=== PATIENT | male | born 1950 | race Caucasian/White ===

== ENCOUNTER 2017-05-10 11:04 | Inpatient (IN) | payer OTHER, MEDICARE ==
[2017-05-10 11:04] VITALS: BMI 27.2
--- NOTE | 2017-05-10 11:41 | C.PDOC ---
History Of Present Illness 59 y/o male, who reports he is on Xarelto for unknown reasons, presents to emergency department with complaints of palpitations, dizziness, SOB, and mild epigastric pain. Patient states he saw his doctor yesterday and was sent home; returns now with worsening symptoms. Otherwise, denies fever, chills, nausea, vomiting, diarrhea, or other associated symptoms. Time Seen by Provider: 05/10/17 11:30 Chief Complaint (Nursing): Dizziness/Lightheaded History Per: Patient History/Exam Limitations: no limitations Onset/Duration Of Symptoms: Days Current Symptoms Are (Timing): Still Present Associated Symptoms: Dizziness. denies: Fever, Bloody Cough, Productive Cough Reports Recently: Treated By A Physician Recent travel outside of the [place]: No Past Medical History Reviewed: Historical Data, Nursing Documentation, Vital Signs Vital Signs: Last Vital Signs Temp 97.9 F 05/11/17 05:30 Pulse 93 H 05/11/17 05:30 Resp 20 05/11/17 05:30 BP 100/61 05/11/17 05:30 Pulse Ox 99 05/11/17 07:39 - Medical History PMH: Anxiety (ABOUT PROCEDURE), Asthma, Cardia Arrhythmia (PAROXYSMAL A FIB), HTN Family History: States: Unknown Family Hx - Social History Hx Alcohol Use: No Hx Substance Use: No - Immunization History Hx Tetanus Toxoid Vaccination: No Hx Influenza Vaccination: No Hx Pneumococcal Vaccination: No Review Of Systems Except As Marked, All Systems Reviewed And Found Negative. Constitutional: Negative for: Fever, Chills Cardiovascular: Positive for: Palpitations. Negative for: Edema Respiratory: Positive for: Shortness of Breath. Negative for: Cough Gastrointestinal: Positive for: Abdominal Pain. Negative for: Nausea, Vomiting Skin: Negative for: Rash Neurological: Positive for: Dizziness Physical Exam - Physical Exam Appears: Non-toxic, No Acute Distress Skin: Warm, Dry Head: Atraumatic, Normacephalic Chest: Symmetrical Cardiovascular: Rhythm Irregular (regularly irregular, Tachycardic) Respiratory: Normal Breath Sounds, No Rales, No Rhonchi, No Wheezing Gastrointestinal/Abdominal: Soft, No Tenderness, No Distention, No Guarding, No Rebound Back: Normal Inspection Extremity: Normal ROM, Capillary Refill (< 2 sec. ) Neurological/Psych: Oriented x3, Normal Speech, Normal Cognition ED Course And Treatment - Laboratory Results Result Diagrams: 05/11/17 06:42 05/11/17 06:38 O2 Sat by Pulse Oximetry: 99 (RA) Pulse Ox Interpretation: Normal Medical Decision Making Medical Decision Making: afib with rvr- cardizem, labs reassess Plan: * EKG * CxR * Labs * Cardizem 20mg IVP * Reassess Prior Visits: Notes and results from previous visits were reviewed Progress Notes:1215: able to speak to dr watkins. now reports h/o of afib. pt on xarelo. rate imprved s/p iv cardizem, po cardizem doesd, asa dosed. dr calixto accepts Disposition - Disposition Disposition: HOSPITALIZED Disposition Time: 02:00 Condition: FAIR - Clinical Impression Clinical Impression: Atrial fibrillation with RVR - Scribe Statement The provider has reviewed the documentation as recorded by the Scribe Donny Ross All medical record entries made by the Scribe were at my direction and personally dictated by me. I have reviewed the chart and agree that the record accurately reflects my personal performance of the history, physical exam, medical decision making, and the department course for this patient. I have also personally directed, reviewed, and agree with the discharge instructions and disposition. Decision To Admit - Pt Status Changed To: Hospital Disposition Of: Inpatient - Admit Certification Admit to Inpatient:: After my assessment, the patient will require hospitalization for at least two midnights. This is because of the severity of symptoms shown, intensity of services needed, and/or the medical risk in this patient being treated as an outpatient. - InPatient: Physician Admission Certification: I certify that this patient requires 2 or more midnights of care for the following reason:: afib with rvr, needs tele monitoring. - . Bed Request Type: Telemetry Admitting Physician: Ferny Calixto Patient Diagnosis: Atrial fibrillation with RVR
[2017-05-10 11:43] LABS: BASO % 0.6 % (0.0-2.0); EOS # 0.1 K/uL (0.0-0.7); EOS % 1.2 % (0.0-4.0); HEMATOCRIT 46.1 % (35.0-51.0); LYMPH # 1.9 K/uL (1.0-4.3); MEAN CORPUSCULAR HEMOGLOBIN 28.9 pg (27.0-31.0); MEAN CORPUSCULAR HGB CONC 33.6 g/dL (33.0-37.0); MEAN PLATELET VOLUME 7.5 fL (7.2-11.7); MONO # 0.3 K/uL (0.0-0.8); MONO % 4.2 % (0.0-10.0)
[2017-05-10 11:48] LABS: MEAN CELL VOLUME 85.9 fL (80.0-94.0)
[2017-05-10 11:50] LABS: CHLORIDE 97 mmol/L (98-107); POTASSIUM 3.6 mmol/L (3.6-5.2); SODIUM 140 mmol/L (132-148)
[2017-05-10 11:51] LABS: INR 1.4
[2017-05-10 11:52] LABS: GFR AFRICAN-AMERICAN > 60
[2017-05-10 11:53] LABS: ALB/GLOB RATIO 1.1 (1.0-2.1); ALKALINE PHOSPHATASE 102 U/L (38-126); ALT/SGPT 35 U/L (21-72); AST/SGOT 28 U/L (17-59); BILIRUBIN,TOTAL 0.8 mg/dL (0.2-1.3); BLOOD UREA NITROGEN 18 mg/dL (9-20); CALCIUM 8.8 mg/dl (8.6-10.4); CARBON DIOXIDE 27 mmol/L (22-30); GLUCOSE,RANDOM 100 mg/dL (75-110); TOTAL PROTEIN 8.1 g/dL (6.3-8.3)
--- NOTE | 2017-05-10 13:05 | RAD ---
PROCEDURE: CHEST RADIOGRAPH, 1 VIEW HISTORY: chest pain COMPARISON: None available. FINDINGS: LUNGS: The right lung is well inflated and clear. There is haziness in the left lung base with blunting of the left costophrenic angle. PLEURA: No pneumothorax or right pleural effusion seen. CARDIOVASCULAR: Normal. OSSEOUS STRUCTURES: No significant abnormalities. VISUALIZED UPPER ABDOMEN: Normal. OTHER FINDINGS: None. IMPRESSION: Suspect small left pleural effusion. Underlying pneumonia cannot be excluded. Follow-up is advised.
[2017-05-10 13:34] LABS: RBC URINE < 1 /hpf (0-3); URINE BILIRUBIN NEGATIVE (NEGATIVE); URINE BLOOD NEGATIVE (NEGATIVE); URINE COLOR Straw (YELLOW); URINE GLUCOSE (UA) NORMAL (Normal); URINE KETONE NEGATIVE (NEGATIVE); URINE LEUKOCYTE ESTERASE NEG Leu/uL (Negative); URINE PROTEIN NEGATIVE (NEGATIVE); URINE UROBILINOGEN NORMAL mg/dL (0.2-1.0)
[2017-05-10] MEDS ORDERED: Albuterol-Ipratrop 3 mg / 0.5 (3 ml) UD INH PRN (14:01)
[2017-05-10 14:37] VITALS: RESP 20
--- NOTE | 2017-05-10 14:58 | CP.PCM.PN ---
Subjective - Date & Time of Evaluation Date of Evaluation: 05/10/17 Time of Evaluation: 14:00 - Subjective Subjective: PGY3 Medicine Note - Dr. Lovelace's Service: Patient seen and examined at bedside in ER. Patient is a 67 year old male with PMHx of gastritis, proxysmal atrial fibrillation, asthma and anxiety presenting with palpitations, SOB, dizziness and epigastric pain x 2 days. Patient says he feels like his heart is racing and it is difficult to get a deep breath. Patient denies associated wheezing and coughing. Patient says this did not improve with his rescue inhaler. Patient went to his PMD yesterday who told him it is probably his gastritis acting up per patient. Patient says his epigastric pain has resolved since being in ER. Patient also reports b/l headache above his ears for 1 week associates with dizziness. Patient denies having any trouble walking or weakness or tingling. Patient denies fever, chills, vision changes, chest pain, nausea, vomiting, diarrhea, constipation, dysuria, sick contacts, weight changes. PMHx: gastritis, proxysmal atrial fibrillation, asthma and anxiety PSHx: left inguinal hernia repair Family Hx: mother - stomach CA at 82, denies MIs and strokes in family Social Hx: denies smoking tobacco, denies ETOH, denies illicit drug use Allergies: NKDA Objective - Vital Signs/Intake and Output Vital Signs (last 24 hours): Temp Pulse Resp BP Pulse Ox 98 F 109 H 20 103/72 99 05/10/17 14:22 05/10/17 14:22 05/10/17 14:22 05/10/17 14:22 05/10/17 14:22 - Medications Medications: Current Medications Albuterol/Ipratropium (Duoneb 3 Mg/0.5 Mg (3 Ml) Ud) 3 ml INH RQ2 PRN PRN Reason: Shortness of Breath Diltiazem HCl (Cardizem) 30 mg PO QID [facility] Pantoprazole Sodium (Protonix Ec Tab) 40 mg PO DAILY [facility] Rivaroxaban (Xarelto) 20 mg PO DAILY [facility] Rosuvastatin Calcium (Crestor) 10 mg PO HS [facility] - Labs Labs: PT 16.5 SECONDS (9.7-12.2) H 05/10/17 11:39 INR 1.4 05/10/17 11:39 APTT 33 SECONDS (21-34) 05/10/17 11:39 - Constitutional Appears: Non-toxic, No Acute Distress - Head Exam Head Exam: NORMAL INSPECTION - Eye Exam Eye Exam: EOMI, PERRL - ENT Exam ENT Exam: Mucous Membranes Moist - Neck Exam Additional comments: left sided submandibular swollen node - Respiratory Exam Respiratory Exam: Clear to Ausculation Bilateral, NORMAL BREATHING PATTERN. absent: Rales, Rhonchi, Wheezes - Cardiovascular Exam Cardiovascular Exam: Tachycardia, Irregular Rhythm, +S1, +S2. absent: Gallop, Rubs, Murmur - GI/Abdominal Exam GI & Abdominal Exam: Soft, Normal Bowel Sounds. absent: Tenderness - Extremities Exam Extremities Exam: Normal Capillary Refill. absent: Pedal Edema - Neurological Exam Neurological Exam: Alert, Awake, CN II-XII Intact, Oriented x3 Neuro motor strength exam: Left Upper Extremity: 5, Right Upper Extremity: 5, Left Lower Extremity: 5, Right Lower Extremity: 5 - Psychiatric Exam Psychiatric exam: Normal Affect, Normal Mood - Skin Skin Exam: Normal Color, Warm Assessment and Plan - Assessment and Plan (Free Text) Assessment: A Fib with RVR EKG - SVT on arrival to ER 2nd EKG - A fib with RVR at 115 bpm after Cardizem 20mg IVP and Cardizem 30mg PO Troponin negative x1 F/U EKG in AM F/U HARSH x2 at 6pm and 12am ASA 81mg PO daily Crestor 10mg PO HS Cardizem 30mg PO QID Continue home med: Xarelto 20mg PO daily Holding home med: Metoprolol 50mg PO BID Cardio consult - Dr. Thorpe - f/u recs Dizziness Likely secondary to AFib v. migraine v. CVA ASA 81mg PO daily Crestor 10mg PO HS F/U Head CT without contrast Headache see plan above for dizziness Tylenol 650mg PO Q6H PRN headache Dyspnea Likely secondary to AFib v. pleural effusion v. CHF See plan for AFib F/U BNP and ECHO Pleural Effusion F/U BNP and ECHO Lasix 40mg IVP once Gastritis Protonix 40mg PO daily History of Asthma Duoneb Q6H PRN SOB HTN Holding home lisinopril-HCTZ and metoprolol as BP is lower side of normal Cardizem 30mg PO QID Prophylaxis Xarelto 20mg PO daily Protonix 40mg PO daily All management per Dr. Lovelace
[2017-05-10] MEDS: Pantoprazole 40 mg EC Tab PO SCH (17:04)
[2017-05-10] MEDS ORDERED: Iodixanol 320 MG/ML 100 ML BOTTLE IV ONE (17:16)
--- NOTE | 2017-05-10 17:49 | CT ---
PROCEDURE: CT HEAD WITHOUT CONTRAST. HISTORY: headache and dizziness COMPARISON: None available. TECHNIQUE: Axial computed tomography images were obtained through the head/brain without intravenous contrast. Radiation dose: Total exam DLP = 788.91 MGy-cm. This CT exam was performed using one or more of the following dose reduction techniques: Automated exposure control, adjustment of the mA and/or kV according to patient size, and/or use of iterative reconstruction technique. FINDINGS: HEMORRHAGE: No intracranial hemorrhage. BRAIN: Diffuse atrophy with prominence of the ventricles and sulci noted. No mass effect or edema. Scattered periventricular and subcortical white matter hypodensities, which are nonspecific, but often seen with chronic microvascular ischemic disease. Please note that MRI with diffusion imaging is more sensitive in the detection of acute ischemic event. VENTRICLES: No hydrocephalus. CALVARIUM: Unremarkable. PARANASAL SINUSES: Unremarkable as visualized. No significant inflammatory changes. MASTOID AIR CELLS: Unremarkable as visualized. No inflammatory changes. OTHER FINDINGS: None. IMPRESSION: Generalized atrophy. Mild nonspecific white matter changes.
[2017-05-11 07:01] LABS: BASO % 0.4 % (0.0-2.0); EOS # 0.1 K/uL (0.0-0.7); EOS % 1.6 % (0.0-4.0); LYMPH # 1.4 K/uL (1.0-4.3); LYMPH % 18.6 % (20.0-40.0); MEAN CELL VOLUME 86.2 fL (80.0-94.0); MEAN CORPUSCULAR HEMOGLOBIN 29.4 pg (27.0-31.0); MEAN CORPUSCULAR HGB CONC 34.1 g/dL (33.0-37.0); MEAN PLATELET VOLUME 7.6 fL (7.2-11.7); MONO # 0.3 K/uL (0.0-0.8); MONO % 4.5 % (0.0-10.0); NRBC % 0.1 % (0.0-2.0); RED CELL DISTRIBUTION WIDTH 14.1 % (11.5-14.5); WHITE BLOOD COUNT 7.3 K/uL (4.8-10.8)
[2017-05-11 07:04] LABS: ALB/GLOB RATIO 1.4 (1.0-2.1); ALKALINE PHOSPHATASE 84 U/L (38-126); ALT/SGPT 32 U/L (21-72); AST/SGOT 27 U/L (17-59); BILIRUBIN,TOTAL 0.5 mg/dL (0.2-1.3); BLOOD UREA NITROGEN 23 mg/dL (9-20); CALCIUM 8.4 mg/dl (8.6-10.4); CARBON DIOXIDE 30 mmol/L (22-30); CHLORIDE 97 mmol/L (98-107); CHOLESTEROL 174 mg/dL (0-199); GFR AFRICAN-AMERICAN > 60; GLUCOSE,RANDOM 94 mg/dL (75-110); POTASSIUM 3.7 mmol/L (3.6-5.2); SODIUM 139 mmol/L (132-148); TOTAL PROTEIN 6.4 g/dL (6.3-8.3)
[2017-05-11 07:34] LABS: THYROID STIMULATING HORMONE 4.29 mIU/L (0.46-4.68)
--- NOTE | 2017-05-11 07:37 | CARD ---
APPROVED REPORT EXAM: Two-dimensional and M-mode echocardiogram with Doppler and color Doppler. Other Information Quality : GoodRhythm : Atrial Fibrillation INDICATION Pleural Effusion 2D DIMENSIONS IVSd1.3 (0.7-1.1cm)LVDd3.9 (3.9-5.9cm) PWd1.1 (0.7-1.1cm)IVSs1.3 (0.8-1.2cm) LVDs2.8 (2.5-4.0cm)FS (%) 23.2 % PWs1.5 (0.8-1.2cm)LVEF (%)60.0 (>50%) M-Mode DIMENSIONS RVDd1.77 (2.1-3.2cm)Left Atrium (MM)3.92 (2.5-4.0cm) IVSd0.97 (0.7-1.1cm)Aortic Root3.26 (2.2-3.7cm) LVDd4.65 (4.0-5.6cm)Aortic Cusp Exc.2.15 (1.5-2.0cm) PWd1.11 (0.7-1.1cm)FS (%) 35 % LVDs3.02 (2.0-3.8cm)LVEF (%)64 (>50%) Aortic Valve LVOT Peak Fwaphsjx466.8cm/Ricardo P 1/2 [id number] Mitral Valve MV E Adkbvyga83.6cm/sMV A Jowtutdb03.3cm/sE/A ratio0.7 TDI E/Lateral E'0.0E/Medial E'0.0 Pulmonary Valve PV Peak Ruikppll547.9cm/sPV Peak Grad.7mmHg Tricuspid Valve TR Peak Rqvjshta793vh/sTR Peak Gr.[id number] LEFT VENTRICLE The left ventricle is normal size. There is mild to moderate concentric left ventricular hypertrophy. The left ventricular function is normal. The left ventricular ejection fraction is within the normal range. The Ejection Fraction is >55%. No regional wall motion abnormalities noted. The left ventricular diastolic function is normal. No left ventricle thrombus noted on this study. There is no ventricular septal defect visualized. There is no left ventricular aneurysm. There is no mass noted in the left ventricle. RIGHT VENTRICLE The right ventricle is normal size. There is normal right ventricular wall thickness. The right ventricular systolic function is normal. ATRIA The left atrium size is normal. The right atrium size is normal. The interatrial septum is intact with no evidence for an atrial septal defect. AORTIC VALVE The aortic valve is normal in structure and function. There is moderate aortic regurgitation. There is no aortic valvular stenosis. There is no aortic valvular vegetation. MITRAL VALVE The mitral valve is normal in structure and function. There is no evidence of mitral valve prolapse. There is no mitral valve stenosis. Mitral regurgitation is mild. TRICUSPID VALVE The tricuspid valve is normal in structure and function. There is no tricuspid valve regurgitation noted. There is no tricuspid valve prolapse or vegetation. There is no tricuspid valve stenosis. PULMONIC VALVE The pulmonary valve is normal in structure and function. There is no pulmonic valvular regurgitation. There is no pulmonic valvular stenosis. GREAT VESSELS The aortic root is normal in size. The ascending aorta is normal in size. The pulmonary artery is normal. The IVC is normal in size and collapses >50% with inspiration. PERICARDIAL EFFUSION The pericardium appears normal. There is no pleural effusion. <Conclusion> The left ventricle is normal size. There is mild to moderate concentric left ventricular hypertrophy. The left ventricular function is normal. The Ejection Fraction is >55%. There is moderate aortic regurgitation. Mitral regurgitation is mild.
--- NOTE | 2017-05-11 07:55 | CP.PCM.PN ---
Subjective - Date & Time of Evaluation Date of Evaluation: 05/11/17 Time of Evaluation: 08:00 - Subjective Subjective: PGY 3 Medicine Progress Note- Dr. Lovelace's Service Patient seen and examined at bedside this AM. Patient reports he was dizzy and states he had pressure in his chest. Admits to SOB at night. No chest pain, SOB or palpitations this AM. Patient's PMD is Dr. Pyle who used to see patient. Objective - Vital Signs/Intake and Output Vital Signs (last 24 hours): Temp Pulse Resp BP Pulse Ox 97.9 F 93 H 20 100/61 99 05/11/17 05:30 05/11/17 05:30 05/11/17 05:30 05/11/17 05:30 05/11/17 07:41 - Medications Medications: Current Medications Acetaminophen (Tylenol 325mg Tab) 650 mg PO Q6 PRN PRN Reason: Headache Albuterol/Ipratropium (Duoneb 3 Mg/0.5 Mg (3 Ml) Ud) 3 ml INH RQ2 PRN PRN Reason: Shortness of Breath Diltiazem HCl (Cardizem) 30 mg PO QID [facility] Last Admin: 05/10/17 22:14 Dose: 30 mg Pantoprazole Sodium (Protonix Ec Tab) 40 mg PO DAILY [facility] Last Admin: 05/10/17 17:04 Dose: 40 mg Rivaroxaban (Xarelto) 20 mg PO DAILY [facility] Rosuvastatin Calcium (Crestor) 10 mg PO HS [facility] Last Admin: 05/10/17 22:14 Dose: 10 mg - Labs Labs: 05/11/17 06:42 05/11/17 06:38 PT 16.5 SECONDS (9.7-12.2) H 05/10/17 11:39 INR 1.4 05/10/17 11:39 APTT 33 SECONDS (21-34) 05/10/17 11:39 - Constitutional Appears: No Acute Distress - Head Exam Head Exam: NORMAL INSPECTION, NORMOCEPHALIC - Eye Exam Eye Exam: EOMI, Normal appearance - ENT Exam ENT Exam: Mucous Membranes Moist - Cardiovascular Exam Cardiovascular Exam: REGULAR RHYTHM, +S1, +S2 - GI/Abdominal Exam GI & Abdominal Exam: Soft. absent: Distended, Tenderness - Extremities Exam Extremities Exam: Full ROM, Normal Inspection - Neurological Exam Neurological Exam: Alert, Oriented x3 - Psychiatric Exam Psychiatric exam: Normal Affect, Normal Mood - Skin Skin Exam: Dry, Normal Color, Warm Assessment and Plan - Assessment and Plan (Free Text) Assessment: A Fib with RVR EKG - SVT on arrival to ER 2nd EKG - A fib with RVR at 115 bpm after Cardizem 20mg IVP and Cardizem 30mg PO HARSH negative X 3 EKG NSR this AM ASA 81mg PO daily Crestor 10mg PO HS Cardizem 30mg PO QID Continue home med: Xarelto 20mg PO daily Holding home med: Metoprolol 50mg PO BID Cardio consult - Dr. Thorpe - f/u recs Dizziness Likely secondary to AFib v. migraine v. CVA ASA 81mg PO daily Crestor 10mg PO HS F/U Head CT without contrast Headache see plan above for dizziness Tylenol 650mg PO Q6H PRN headache Dyspnea Likely secondary to AFib v. pleural effusion See plan for AFib No CHF. ECHO shows LVH, >55%, AR, MR BNP 289 Pleural Effusion No CHF. ECHO shows LVH, >55%, AR, MR BNP 289 Lasix 40mg IVP once Gastritis Protonix 40mg PO daily History of Asthma Duoneb Q6H PRN SOB HTN Holding home lisinopril-HCTZ and metoprolol as BP is lower side of normal Cardizem 30mg PO QID Prophylaxis Xarelto 20mg PO daily Protonix 40mg PO daily All management per Dr. Lovelace
--- NOTE | 2017-05-11 09:00 | CT ---
PROCEDURE: CT Chest with contrast (Pulmonary Angiogram) HISTORY: SOB and tachycardia COMPARISON: Abdomen/pelvis CT examination 01/22/2013. TECHNIQUE: Axial computed tomography images were obtained of the chest in the pulmonary arterial phase of enhancement. Coronal and sagittal reformatted images were created and reviewed. Intravenous contrast dose: Visipaque 320, 100 cc. Radiation dose: Total exam DLP = 410 mGy-cm. This CT exam was performed using one or more of the following dose reduction techniques: Automated exposure control, adjustment of the mA and/or kV according to patient size, and/or use of iterative reconstruction technique. FINDINGS: PULMONARY ARTERIES: No CT evidence of pulmonary embolus. AORTA: Borderline thoracic aortic aneurysm at 4.1 cm, ascending segment only. LUNGS: No definite infiltrate or central air rate lesion appears 6 mm nodule is identified at the superior sign right lower lobe near the hilum best seen in series 2 image 69. Biapical fibrotic changes are appreciated including what appears to nodular scarring at the left apex with traction screening volume loss at the left lung mildly. PLEURAL SPACES: Unremarkable. No effusion or pneuomothorax. HEART: Unremarkable. No cardiomegaly. No significant pericardial effusion. LYMPH NODES: No lymphadenopathy. BONES, CHEST WALL: Unremarkable. No fracture or destructive lesion OTHER FINDINGS: Left hepatic cyst is again identified somewhat larger in the interval remaining under 10 Hounsfield units density a few additional tiny lucencies are seen scattered in the right lobe liver. IMPRESSION: 1. No CT evidence of pulmonary embolus. 2. 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 6 mm nodule seen at the superior segment right lower lobe for which follow-up chest is advised in 6-12 months to the initiate a stability assessment. 3. Hepatic cyst identified as well as additional small lucencies marginally larger in the interval.
[2017-05-11] MEDS: Pantoprazole 40 mg EC Tab PO SCH (09:38)
[2017-05-12 07:44] LABS: BASO % 0.5 % (0.0-2.0); EOS # 0.2 K/uL (0.0-0.7); HEMATOCRIT 41.7 % (35.0-51.0); LYMPH # 1.2 K/uL (1.0-4.3); LYMPH % 16.4 % (20.0-40.0); MEAN CELL VOLUME 84.9 fL (80.0-94.0); MEAN CORPUSCULAR HEMOGLOBIN 29.2 pg (27.0-31.0); MEAN CORPUSCULAR HGB CONC 34.4 g/dL (33.0-37.0); MEAN PLATELET VOLUME 7.7 fL (7.2-11.7); MONO # 0.2 K/uL (0.0-0.8); MONO % 3.2 % (0.0-10.0); RED CELL DISTRIBUTION WIDTH 13.8 % (11.5-14.5); WHITE BLOOD COUNT 7.6 K/uL (4.8-10.8)
[2017-05-12 07:58] LABS: CHLORIDE 97 mmol/L (98-107); POTASSIUM 3.7 mmol/L (3.6-5.2); SODIUM 136 mmol/L (132-148)
[2017-05-12 08:00] LABS: BILIRUBIN,TOTAL 0.8 mg/dL (0.2-1.3); CARBON DIOXIDE 27 mmol/L (22-30); GFR AFRICAN-AMERICAN > 60
[2017-05-12 08:01] LABS: ALB/GLOB RATIO 1.1 (1.0-2.1); ALKALINE PHOSPHATASE 87 U/L (38-126); ALT/SGPT 35 U/L (21-72); AST/SGOT 25 U/L (17-59); BLOOD UREA NITROGEN 25 mg/dL (9-20); CALCIUM 8.4 mg/dl (8.6-10.4); GLUCOSE,RANDOM 96 mg/dL (75-110); TOTAL PROTEIN 6.7 g/dL (6.3-8.3)
[2017-05-12 08:02] LABS: MAGNESIUM 2.1 mg/dL (1.6-2.3)
[2017-05-12 08:42] VITALS: TEMP 98.3; O2SAT 96
[2017-05-12] MEDS: Pantoprazole 40 mg EC Tab PO SCH (09:32)
--- NOTE | 2017-05-12 16:08 | CP.PCM.PN ---
Subjective - Date & Time of Evaluation Date of Evaluation: 05/12/17 Time of Evaluation: 16:08 - Subjective Subjective: PT SEEN BY DR. PINO THIS MORNING AND CLEARED FOR D/C HOME TODAY. PER DR. PINO. HE SPOKE W DR. NORIEGA, COVERING FOR DR. HATFIELD, AND SHE IS UNABLE TO SEE THE PT IN HOSPITAL AND ENCOURAGED F/U WITH DR. HATFIELD SUNDAY MORNING IN OFFICE. PT IN AGREEMENT WITH THIS PLAN. RX GIVEN FOR MEDS PER DR. PINO. NO FURTHER ORDERS. Objective - Vital Signs/Intake and Output Vital Signs (last 24 hours): Temp Pulse Resp BP Pulse Ox 98.3 F 81 20 122/77 96 05/12/17 07:00 05/12/17 13:12 05/12/17 07:00 05/12/17 13:12 05/12/17 07:00 Intake and Output: 05/12/17 05/12/17 06:59 18:59 Intake Total 10 600 Balance 10 600 - Medications Medications: Current Medications Acetaminophen (Tylenol 325mg Tab) 650 mg PO Q6 PRN PRN Reason: Headache Last Admin: 05/12/17 01:45 Dose: 650 mg Albuterol/Ipratropium (Duoneb 3 Mg/0.5 Mg (3 Ml) Ud) 3 ml INH RQ2 PRN PRN Reason: Shortness of Breath Diltiazem HCl (Cardizem) 30 mg PO QID [facility] Last Admin: 05/12/17 13:20 Dose: 30 mg Pantoprazole Sodium (Protonix Ec Tab) 40 mg PO DAILY [facility] Last Admin: 05/12/17 09:32 Dose: 40 mg Rivaroxaban (Xarelto) 20 mg PO DAILY [facility] Last Admin: 05/12/17 09:32 Dose: 20 mg Rosuvastatin Calcium (Crestor) 10 mg PO HS [facility] Last Admin: 05/11/17 21:05 Dose: 10 mg - Labs Labs: 05/12/17 07:33 05/12/17 07:33 PT 16.5 SECONDS (9.7-12.2) H 05/10/17 11:39 INR 1.4 05/10/17 11:39 APTT 33 SECONDS (21-34) 05/10/17 11:39
[2017-05-12 17:36] VITALS: BP 122/74; PULSE 66
--- NOTE | 2017-05-13 02:16 | HP ---
HISTORY OF PRESENT ILLNESS: A 67-year-old male history of atrial fibrillation admitted to the hospital with shortness of breath and chest pain as well as atrial fibrillation, and patient came to the ER, advised admission. PHYSICAL EXAMINATION: GENERAL: The patient is awake, alert, oriented. VITAL SIGNS: Temperature 98, pulse 90. HEENT: Within normal limits. NECK: Supple. CHEST: Symmetrical. HEART: Regular. ABDOMEN: Soft. EXTREMITIES: No edema. IMPRESSION: The patient suffers from atrial fibrillation. The patient advised supportive care. Cardiology evaluation was made on 05/10/2017. Ferny Lovelace MD
--- NOTE | 2017-05-18 19:37 | CARD ---
APPROVED REPORT EKG Measurement Heart [id number] <Conclusion> ectopic atrial rhythm Rightward axis Abnormal ECG
--- NOTE | 2017-05-21 09:24 | CARD ---
APPROVED REPORT EKG Measurement Heart [id number] <Conclusion> Atrial fibrillation with rapid ventricular response Rightward axis Nonspecific ST abnormality Abnormal QRS-T angle, consider primary T wave abnormality Abnormal ECG
--- NOTE | 2017-05-21 09:28 | CARD ---
APPROVED REPORT EKG Measurement Heart [id number] <Conclusion> Sinus tachycardia with premature supraventricular complexes and with occasional premature ventricular complexes Rightward axis Marked ST abnormality, possible inferior subendocardial injury Abnormal ECG
== END 2017-05-12 18:15 | disposition home or self-care (01) | DRG 305 ==
LOC: C.ER 11:04 → C.9E 12:11 → C.6T 14:11
PROVIDERS: ADMIT Internal Medicine Pulmonary Disease; ATTEND Internal Medicine Pulmonary Disease
DX: I11.9 Hypertensive heart disease without heart failure (principal); J90 Pleural effusion, not elsewhere classified; I48.0 Paroxysmal atrial fibrillation; R42 Dizziness and giddiness; J45.909 Unspecified asthma, uncomplicated; F41.9 Anxiety disorder, unspecified; K29.70 Gastritis, unspecified, without bleeding

== ENCOUNTER 2018-03-02 09:47 | Emergency (ER) | payer MEDICARE, OTHER ==
[2018-03-02 09:47] VITALS: BMI 27.2
[2018-03-02 09:57] VITALS: O2SAT 100
[2018-03-02 10:48] LABS: URINE BILIRUBIN NEGATIVE (NEGATIVE); URINE BLOOD NEGATIVE (NEGATIVE); URINE CLARITY Clear (Clear); URINE COLOR Yellow (YELLOW); URINE GLUCOSE (UA) NORMAL (Normal); URINE LEUKOCYTE ESTERASE NEG Leu/uL (Negative); URINE PROTEIN NEGATIVE (NEGATIVE); URINE UROBILINOGEN NORMAL mg/dL (0.2-1.0)
[2018-03-02] MEDS ORDERED: Sodium Chloride 0.9% 1,000 ML IV ONE (12:09)
[2018-03-02] MEDS ORDERED: Iohexol 240 (50 ml) PO STA (12:09)
[2018-03-02 12:31] LABS: BASO # 0.1 K/uL (0.0-0.2); BASO % 0.7 % (0.0-2.0); EOS # 0.1 K/uL (0.0-0.7); EOS % 1.4 % (0.0-4.0); HEMOGLOBIN 14.5 g/dL (12.0-18.0); LYMPH # 1.2 K/uL (1.0-4.3); LYMPH % 14.8 % (20.0-40.0); MEAN CELL VOLUME 83.4 fL (80.0-94.0); MEAN CORPUSCULAR HEMOGLOBIN 28.1 pg (27.0-31.0); MEAN CORPUSCULAR HGB CONC 33.7 g/dL (33.0-37.0); MEAN PLATELET VOLUME 7.5 fL (7.2-11.7); MONO # 0.3 K/uL (0.0-0.8); MONO % 3.3 % (0.0-10.0); NEUT # 6.7 K/uL (1.8-7.0); NEUT % 79.8 % (50.0-75.0); NRBC % 0.1 % (0.0-2.0); RBC 5.17 Mil/uL (4.40-5.90); RED CELL DISTRIBUTION WIDTH 15.3 % (11.5-14.5); WHITE BLOOD COUNT 8.4 K/uL (4.8-10.8)
[2018-03-02] MEDS ORDERED: Sodium Chloride 0.9% 1,000 ML ONE (12:38)
[2018-03-02] MEDS ORDERED: Iohexol 240 (50 ml) ONE (12:38)
[2018-03-02 12:40] LABS: INR 1.1; PROTHROMBIN TIME 12.3 SECONDS (9.7-12.2)
[2018-03-02 13:12] LABS: ALB/GLOB RATIO 1.2 (1.0-2.1); ALBUMIN 4.3 g/dL (3.5-5.0); ALT/SGPT 32 U/L (21-72); AST/SGOT 28 U/L (17-59); BLOOD UREA NITROGEN 15 mg/dL (9-20); CALCIUM 8.5 mg/dl (8.6-10.4); GFR AFRICAN-AMERICAN > 60; GFR NON-AFRICAN AMERICAN > 60; LIPASE 190 U/L (23-300)
[2018-03-02] MEDS ORDERED: Iodixanol 320 MG/ML 100 ML BOTTLE IV ONE (14:28)
--- NOTE | 2018-03-02 14:33 | C.PDOC ---
History Of Present Illness 68-year-old male, presents to the emergency department with complaints of urinary frequency for the past week, associated with lower abdominal discomfort. He denies nausea/vomiting, fever, chills, chest pain, shortness of breath, hematuria, or any other associated symptoms. No other complaints at this time. Time Seen by Provider: 03/02/18 10:18 Chief Complaint (Nursing): Male Genitourinary History Per: Patient History/Exam Limitations: no limitations Onset/Duration Of Symptoms: Days Current Symptoms Are (Timing): Still Present Severity: Moderate Past Medical History Reviewed: Historical Data, Nursing Documentation, Vital Signs Vital Signs: Last Vital Signs Temp 97.8 F 03/02/18 17:13 Pulse 83 03/02/18 17:13 Resp 18 03/02/18 17:13 BP 156/85 H 03/02/18 17:13 Pulse Ox 100 03/02/18 17:14 - Medical History PMH: Anxiety (ABOUT PROCEDURE), Asthma, Cardia Arrhythmia (PAROXYSMAL A FIB), HTN Denies: Chronic Kidney Disease Family History: States: No Known Family Hx - Social History Hx Alcohol Use: No Hx Substance Use: No - Immunization History Hx Tetanus Toxoid Vaccination: No Hx Influenza Vaccination: No Hx Pneumococcal Vaccination: No Review Of Systems Constitutional: Negative for: Fever, Chills Cardiovascular: Negative for: Chest Pain Respiratory: Negative for: Shortness of Breath Gastrointestinal: Positive for: Abdominal Pain. Negative for: Vomiting Genitourinary: Positive for: Frequency Neurological: Negative for: Weakness, Numbness, Headache, Dizziness Physical Exam - Physical Exam Appears: Non-toxic, No Acute Distress Skin: Warm, Dry, No Rash Head: Normacephalic Eye(s): bilateral: PERRL Nose: Normal Oral Mucosa: Moist Lips: Normal Appearing Neck: Normal ROM Chest: Symmetrical Cardiovascular: Rhythm Regular, No Murmur Respiratory: Normal Breath Sounds, No Accessory Muscle Use Gastrointestinal/Abdominal: Soft, Tenderness (suprapubic), No Guarding, No Rebound Extremity: Normal ROM, No Deformity, No Swelling Neurological/Psych: Oriented x3, Normal Speech ED Course And Treatment - Laboratory Results Result Diagrams: 03/02/18 12:28 03/02/18 12:28 O2 Sat by Pulse Oximetry: 100 (ra) Pulse Ox Interpretation: Normal - CT Scan/US CT Abdomen/Pelvis Other Rad Studies (CT/US): Read By Radiologist, Radiology Report Reviewed CT/US Interpretation: PROCEDURE: CT Abdomen and Pelvis without intravenous contrast. HISTORY: Lower abdominal davalos. COMPARISON: 01/22/2013. TECHNIQUE: Multiple contiguous axial images were performed through the abdomen and pelvis with the use of intravenous contrast. Subsequently, sagittal and coronal reformatted images were obtained. Radiation dose: Total exam DLP = 837 mGy-cm. This CT exam was performed using one or more of the following dose reduction techniques: Automated exposure control, adjustment of the mA and/or kV according to patient size, and/or use of iterative reconstruction technique. FINDINGS: LOWER THORAX: Unremarkable. LIVER: Again identified are multiple innumerable low-attenuation lesions throughout the liver overall grossly stable in size and appearance since the prior study. A prominent lobulated multi septated lesion is noted within the left hepatic lobe measuring up to 4.4 x 2.6 centimeters demonstrating a Hounsfield unit attenuation 13. GALLBLADDER AND BILE DUCTS: Unremarkable. PANCREAS: Unremarkable. No gross lesion or ductal dilatation. SPLEEN: Unremarkable. Splenule. ADRENALS: Unremarkable. No mass. KIDNEYS AND URETERS: Unremarkable. No hydronephrosis. No solid mass. VASCULATURE: Unremarkable. No aortic aneurysm. BOWEL: Unremarkable. No obstruction. No gross mural thickening. Small hiatal hernia. APPENDIX: Appendix not well identified. Motion artifact at the level of the cecum. PERITONEUM: Unremarkable. No free fluid. No free air. LYMPH NODES: Few shotty inguinal and para-aortic lymph nodes. Few shotty mesenteric lymph nodes. Small fat containing umbilical hernia. BLADDER: Thick-walled urinary bladder which may represent underlying cystitis. REPRODUCTIVE: Markedly enlarged and heterogeneous prostate measuring up to 6.6 x 6.0 centimeters containing internal calcifications and demonstrating some mass-effect on the posterior aspect of the urinary bladder. BONES: Degenerative changes. Few scattered bone islands in the right iliac bone. OTHER FINDINGS: Small fat containing right inguinal hernia. IMPRESSION: 1. Thick-walled urinary bladder which may represent underlying cystitis. Clinical correlation. 2. Markedly enlarged and heterogeneous prostate measuring up to 6.6 x 6.0 centimeters containing internal calcifications and demonstrating some mass-effect on the posterior aspect of the urinary bladder. Clinical correlation. 3. Appendix not well identified. Some motion and beam hardening artifact at the level of the cecum, somewhat limits evaluation. Clinical correlation. 4. Small fat containing right inguinal hernia. 5. Again identified are multiple innumerable low-attenuation lesions throughout the liver overall grossly stable in size and appearance since the prior study. A prominent lobulated multi septated lesion is noted within the left hepatic lobe measuring up to 4.4 x 2.6 centimeters demonstrating a Hounsfield unit attenuation 13. 6. Moderate fecal retention in the colon. Additional findings as above. Progress Note: CT Abd/Pel, Bloodwork, Urine/urine culture ordered and reviewed Disposition - Disposition Disposition: HOME/ ROUTINE Disposition Time: 17:11 Condition: STABLE Additional Instructions: Follow up with your PMD and Urologist within 1-2 days. Return to ED if feel worse. Prescriptions: Ciprofloxacin [Cipro] 1 tab PO BID #14 tab Instructions: Acute Cystitis (DC) Forms: [employer] (Kiswahili) Print Language: MACEDONIAN - Clinical Impression Clinical Impression: Cystitis - Scribe Statement The provider has reviewed the documentation as recorded by the Scribe (Cooper Patricio) All medical record entries made by the Scribe were at my direction and personally dictated by me. I have reviewed the chart and agree that the record accurately reflects my personal performance of the history, physical exam, medical decision making, and the department course for this patient. I have also personally directed, reviewed, and agree with the discharge instructions and disposition.
--- NOTE | 2018-03-02 16:35 | CT ---
PROCEDURE: CT Abdomen and Pelvis without intravenous contrast HISTORY: Lower abdominal davalos COMPARISON: 01/22/2013 TECHNIQUE: Multiple contiguous axial images were performed through the abdomen and pelvis with the use of intravenous contrast. Subsequently, sagittal and coronal reformatted images were obtained. Radiation dose: Total exam DLP = 837 mGy-cm. This CT exam was performed using one or more of the following dose reduction techniques: Automated exposure control, adjustment of the mA and/or kV according to patient size, and/or use of iterative reconstruction technique. FINDINGS: LOWER THORAX: Unremarkable. LIVER: Again identified are multiple innumerable low-attenuation lesions throughout the liver overall grossly stable in size and appearance since the prior study. A prominent lobulated multi septated lesion is noted within the left hepatic lobe measuring up to 4.4 x 2.6 centimeters demonstrating a Hounsfield unit attenuation 13. GALLBLADDER AND BILE DUCTS: Unremarkable. PANCREAS: Unremarkable. No gross lesion or ductal dilatation. SPLEEN: Unremarkable. Splenule. ADRENALS: Unremarkable. No mass. KIDNEYS AND URETERS: Unremarkable. No hydronephrosis. No solid mass. VASCULATURE: Unremarkable. No aortic aneurysm. BOWEL: Unremarkable. No obstruction. No gross mural thickening. Small hiatal hernia. APPENDIX: Appendix not well identified. Motion artifact at the level of the cecum. PERITONEUM: Unremarkable. No free fluid. No free air. LYMPH NODES: Few shotty inguinal and para-aortic lymph nodes. Few shotty mesenteric lymph nodes. Small fat containing umbilical hernia. BLADDER: Thick-walled urinary bladder which may represent underlying cystitis. REPRODUCTIVE: Markedly enlarged and heterogeneous prostate measuring up to 6.6 x 6.0 centimeters containing internal calcifications and demonstrating some mass-effect on the posterior aspect of the urinary bladder. BONES: Degenerative changes. Few scattered bone islands in the right iliac bone. OTHER FINDINGS: Small fat containing right inguinal hernia. IMPRESSION: 1. Thick-walled urinary bladder which may represent underlying cystitis. Clinical correlation. 2. Markedly enlarged and heterogeneous prostate measuring up to 6.6 x 6.0 centimeters containing internal calcifications and demonstrating some mass-effect on the posterior aspect of the urinary bladder. Clinical correlation. 3. Appendix not well identified. Some motion and beam hardening artifact at the level of the cecum, somewhat limits evaluation. Clinical correlation. 4. Small fat containing right inguinal hernia. 5. Again identified are multiple innumerable low-attenuation lesions throughout the liver overall grossly stable in size and appearance since the prior study. A prominent lobulated multi septated lesion is noted within the left hepatic lobe measuring up to 4.4 x 2.6 centimeters demonstrating a Hounsfield unit attenuation 13. 6. Moderate fecal retention in the colon. Additional findings as above.
[2018-03-02 17:14] VITALS: BP 156/85; PULSE 83; RESP 18; TEMP 97.8
== END 2018-03-02 17:22 | disposition home or self-care (01) ==
LOC: C.ER 09:47
DX: N30.90 Cystitis, unspecified without hematuria (principal)
CPT/HCPCS: 74177; 80053; 81001; 83690; 85025; 85610; 85730; 87086; 96360; 99285; J7040; Q9966; Q9967